=== PATIENT | male | born 1995 | race Two or more races ===

== ENCOUNTER 2016-09-15 18:11 | Inpatient (IN) | payer BC ==
[2016-09-15] MEDS ORDERED: NS 0.9% 1000 ML* 2,000 ML IV ONE (18:54)
[2016-09-15 19:20] LABS: Hematocrit 47 % (42-52); Hemoglobin 15.9 g/dl (14.0-18.0); Mean Corpuscular HGB Conc 34 g/dl (31-36); Mean Corpuscular Hemoglobin 30 pg (27-31); Mean Corpuscular Volume 90 fL (80-94); Mean Platelet Volume 9 um3 (7.4-10.4); Red Blood Count 5.26 10^6/ul (4.0-5.4); Red Cell Distribution Width 13 % (10.5-15); White Blood Count 10.1 10^3/ul (3.5-10.8)
[2016-09-15 19:30] LABS: Urine Bacteria 1+ (Absent); Urine Bilirubin Negative (Negative); Urine Glucose Negative (Negative); Urine Nitrite Negative (Negative)
[2016-09-15 19:32] LABS: Albumin 4.7 g/dL (3.2-5.2); Alkaline Phosphatase 63 U/L (34-104); Anion Gap 2 mmol/L (2-11); BUN/Creatinine Ratio 12.2 (8-20); Blood Urea Nitrogen 10 mg/dL (6-24); C Reactive Protein 3.96 mg/L (< 5.00); CO2 Carbon Dioxide 33 mmol/L (22-32); Calcium 9.7 mg/dL (8.6-10.3); Chloride 103 mmol/L (101-111); EGFR African American 152.5 (>60); EGFR Non-African American 118.6 (>60); Globulin 2.5 g/dL (2-4); Glucose 94 mg/dL (70-100); Potassium 3.9 mmol/L (3.5-5.0); Sodium 138 mmol/L (133-145); Total Protein 7.2 g/dL (6.4-8.9)
[2016-09-15 19:52] LABS: AST 2435 U/L (13-39)
[2016-09-15 19:53] LABS: ALT 549 U/L (7-52)
[2016-09-15 20:34] LABS: Creatine Kinase 165460 U/L (10-223)
[2016-09-15 20:50] LABS: Amylase 64 U/L (29-103); Lipase 37 U/L (11.0-82.0)
[2016-09-15] MEDS ORDERED: traMADol TAB* 50 MG PO PRN (20:58)
[2016-09-15] MEDS ORDERED: CMCS: Melatonin (NF) 3 MG TAB PO PRN (20:58)
[2016-09-15] MEDS ORDERED: Ondansetron INJ* 2 MG/ML VIAL IV PRN (20:58)
--- NOTE | 2016-09-15 21:04 | HP ---
H&P (Free Text) History and Physical: PCP: Katia Date/Time of Evaluation: 09/15/2016 2100 CC: myalgia, dark urine HPI: Mr Kinney is a 21YO male [employer] student who started a weight routine with generalized, but mainly BLE soreness. Between and today, Saturday, he has done ~12hours of dance practice with gradual worsening of his BLE myalgia and brownish discoloration of the urine. He decided to present to ED after reviewing the potential causes on Google. He denies any alcohol, acetaminophen, or supplement use. Specifically he denies using steroids. He denies chest pain, SOB, F/C, N/V/D, or other issues. Work up reveals a total CK of 165k with significant AST/ALT elevation of ~2500/ 550. An US RUQ reveals mild prominence of the CBD with a R kidney appearing involved in a medical-renal process. Case was discussed with MD DORON Nuñez who relates the AST & ALT elevations are likely 2nd to rhabdomyolysis, recommended hepatitis serology, evaluation for Tono's disease and auto-immune hepatitis for completeness, & will evaluate in the AM. I was able to locate a research article (https://www.researchgate.net/ publication/43227742_Liver_Aminotransferases_Are_Elevated_with_Rhabdomyolysis_in _the_Absence_of_Significant_Liver_Injury) stating AST elevations were seen in ~ 93% and ALT elevations were seen in ~75% of patients presenting with rhabdomyolysis (defined as total CK =>1000). Additionally, the AST but NOT the ALT is expected to fall in parallel with the total CK during the 1st 6 days. PMedHx negative except shoulder dislocations Allergies No Known Allergies Allergy (Verified 09/15/16 18:25) Ambulatory Orders NK [No Home Medications Reported] 09/15/16 PSurgHx negative SocHx: no tobacco, alcohol, or recreational drug HX; has been Vegan for ~4- 5years; single, no children; [employer] student; full code status FamHx: reviewed, non-contributory ROS: as above, otherwise reviewed and all were negative Constitutional: NAD, normally developed, well-nourished black male vitals: Vital Signs Temp 37.4 C 01/21/17 18:23 Pulse 85 09/15/16 21:30 Resp 18 09/15/16 18:23 BP 118/60 09/15/16 21:30 Pulse Ox 100 09/15/16 21:30 Intake & Output 09/14/16 09/15/16 09/15/16 23:59 11:59 23:59 Intake Total 1000 Balance 1000 Weight 153 lb Intake: IV Fluids 1000 HEENM: atraumatic; sclera/conjunctiva: non-icteric/clear; hearing: intact; oropharynx: clear, mucosa moist Neck: soft tissue: non-tender; thyroid: normal Pulmonary: clear to auscultation bilaterally, good aeration, no accessory muscle use CV: RR/RR, normal S1S2, no carotid bruit, no jugular venous distention, 2+ B DP/ PT, no edema Abdominal: soft, non-distended, non-tender, no rebound/guarding/rigidity, normoactive bowel sounds, no hepatosplenomegaly or masses, no costovertebral angle tenderness Musculoskeletal: general: no gross abnormality, generalized muscular tenderness of BLE, fit appearance without abnormal muscularity; gait: stable Integumental: normal appearance and texture Psychiatric orientation: AA&O to PPTS affect: calm mood: cooperative eye contact: good content: reliable responses: timely insight: excellent Testing: Lab Results 09/15/16 09/15/16 09/15/16 Range/Units 18:35 18:35 18:35 WBC 10.1 (3.5-10.8) 10^3/ul RBC 5.26 (4.0-5.4) 10^6/ul Hgb 15.9 (14.0-18.0) g/dl Hct 47 (42-52) % MCV 90 (80-94) fL MCH 30 (27-31) pg MCHC 34 (31-36) g/dl RDW 13 (10.5-15) % Plt Count 229 (150-450) 10^3/ul MPV 9 (7.4-10.4) um3 Neut % (Auto) 73.9 (38-83) % Lymph % (Auto) 20.4 L (25-47) % [place] % (Auto) 5.1 (1-9) % Eos % (Auto) 0.4 (0-6) % Baso % (Auto) 0.2 (0-2) % Absolute Neuts (auto) 7.4 (1.5-7.7) 10^3/ul Absolute Lymphs (auto) 2.0 (1.0-4.8) 10^3/ul Absolute Monos (auto) 0.5 (0-0.8) 10^3/ul Absolute Eos (auto) 0 (0-0.6) 10^3/ul Absolute Basos (auto) 0 (0-0.2) 10^3/ul Absolute Nucleated RBC 0 10^3/ul Nucleated RBC % 0 INR (Anticoag Therapy) 1.00 (0.89-1.11) APTT 29.9 (26.0-36.3) seconds Sodium 138 (133-145) mmol/L Potassium 3.9 (3.5-5.0) mmol/L Chloride 103 (101-111) mmol/L Carbon Dioxide 33 H (22-32) mmol/L Anion Gap 2 (2-11) mmol/L BUN 10 (6-24) mg/dL Creatinine 0.82 (0.67-1.17) mg/dL Est GFR ( Amer) 152.5 (>60) Est GFR (Non-Af Amer) 118.6 (>60) BUN/Creatinine Ratio 12.2 (8-20) Glucose 94 (70-100) mg/dL Calcium 9.7 (8.6-10.3) mg/dL Total Bilirubin 0.90 (0.2-1.0) mg/dL AST 2435 H (13-39) U/L ALT 549 H (7-52) U/L Alkaline Phosphatase 63 (34-104) U/L Total Creatine Kinase 422793 H (10-223) U/L CK-MB (CK-2) 68.6 H (0.6-6.3) ng/mL C-Reactive Protein 3.96 (< 5.00) mg/L Total Protein 7.2 (6.4-8.9) g/dL Albumin 4.7 (3.2-5.2) g/dL Globulin 2.5 (2-4) g/dL Albumin/Globulin Ratio 1.9 (1-3) Amylase 64 (29-103) U/L Lipase 37 (11.0-82.0) U/L Urine Color Urine Appearance Urine pH (5-9) Ur Specific [place] (1.010-1.030) Urine Protein (Negative) Urine Ketones (Negative) Urine Blood (Negative) Urine Nitrate (Negative) Urine Bilirubin (Negative) Urine Urobilinogen (Negative) Ur Leukocyte Esterase (Negative) Urine WBC (Auto) (Absent) Urine RBC (Auto) (Absent) Urine Bacteria (Absent) Urine Glucose (Negative) Acetaminophen Pending 09/15/16 Range/Units 19:20 WBC (3.5-10.8) 10^3/ul RBC (4.0-5.4) 10^6/ul Hgb (14.0-18.0) g/dl Hct (42-52) % MCV (80-94) fL MCH (27-31) pg MCHC (31-36) g/dl RDW (10.5-15) % Plt Count (150-450) 10^3/ul MPV (7.4-10.4) um3 Neut % (Auto) (38-83) % Lymph % (Auto) (25-47) % [place] % (Auto) (1-9) % Eos % (Auto) (0-6) % Baso % (Auto) (0-2) % Absolute Neuts (auto) (1.5-7.7) 10^3/ul Absolute Lymphs (auto) (1.0-4.8) 10^3/ul Absolute Monos (auto) (0-0.8) 10^3/ul Absolute Eos (auto) (0-0.6) 10^3/ul Absolute Basos (auto) (0-0.2) 10^3/ul Absolute Nucleated RBC 10^3/ul Nucleated RBC % INR (Anticoag Therapy) (0.89-1.11) APTT (26.0-36.3) seconds Sodium (133-145) mmol/L Potassium (3.5-5.0) mmol/L Chloride (101-111) mmol/L Carbon Dioxide (22-32) mmol/L Anion Gap (2-11) mmol/L BUN (6-24) mg/dL Creatinine (0.67-1.17) mg/dL Est GFR ( Amer) (>60) Est GFR (Non-Af Amer) (>60) BUN/Creatinine Ratio (8-20) Glucose (70-100) mg/dL Calcium (8.6-10.3) mg/dL Total Bilirubin (0.2-1.0) mg/dL AST (13-39) U/L ALT (7-52) U/L Alkaline Phosphatase (34-104) U/L Total Creatine Kinase (10-223) U/L CK-MB (CK-2) (0.6-6.3) ng/mL C-Reactive Protein (< 5.00) mg/L Total Protein (6.4-8.9) g/dL Albumin (3.2-5.2) g/dL Globulin (2-4) g/dL Albumin/Globulin Ratio (1-3) Amylase (29-103) U/L Lipase (11.0-82.0) U/L Urine Color Straw Urine Appearance Clear Urine pH 7.0 (5-9) Ur Specific [place] 1.002 L (1.010-1.030) Urine Protein Negative (Negative) Urine Ketones Negative (Negative) Urine Blood 3+ H (Negative) Urine Nitrate Negative (Negative) Urine Bilirubin Negative (Negative) Urine Urobilinogen Negative (Negative) Ur Leukocyte Esterase Negative (Negative) Urine WBC (Auto) Absent (Absent) Urine RBC (Auto) 1+(3-5/hpf) H (Absent) Urine Bacteria 1+ H (Absent) Urine Glucose Negative (Negative) Acetaminophen US RUQ: IMPRESSION: 1. MILD PROMINENCE OF THE COMMON BILE DUCT. 2. THE RIGHT KIDNEY IS INCREASED IN ECHOGENICITY CONSISTENT WITH MEDICAL RENAL DISEASE. Impression: 21M presenting with severe exercise-induced rhabdomyolysis DIAGNOSIS & PLAN Primary exercise-induced rhabdomyolysis : aggressive IVF hydration considering US appearance of R kidney : trend total CK & AST/ALT : check JOANIE & anti-dsDNA : check ceruloplasmin : check acute hepatitis panel : pain control : supportive care : Aurelio Dutta MD GI was consulted & will follow in the AM; input appreciated Admission Rational: observation for rhabdomyolysis DVTp: YASSINE Code Status: full
--- NOTE | 2016-09-15 21:12 | RAD ---
INDICATION: Elevated liver function tests. COMPARISON: There are no prior studies available for comparison. TECHNIQUE: Multiple real-time images of the right upper quadrant were obtained. FINDINGS: The gallbladder appears slightly contracted and otherwise unremarkable. No gallbladder wall thickening or pericholecystic fluid is seen. No intrahepatic ductal distention is seen. There is mild prominence of the common bile duct. The common bile duct measured 0.6 cm in diameter. The liver is normal in size without significant focal abnormality. The pancreas is partially obscured by overlying bowel gas. The right kidney is normal in size and increased in echogenicity suggestive of medical renal disease. IMPRESSION: 1. MILD PROMINENCE OF THE COMMON BILE DUCT. 2. THE RIGHT KIDNEY IS INCREASED IN ECHOGENICITY CONSISTENT WITH MEDICAL RENAL DISEASE.
--- NOTE | 2016-09-15 21:47 | ED ---
Gwyn Mccullough Janilya, scribed for Zia Atkins MD on 09/15/16 at 1858 . Lower Extremity - HPI Summary HPI Summary: A 21 y/o male came in to [facility] presenting w/ bilateral leg pain starting 2 days ago. Pt reports feeling pain, soreness, tightness, and swelling in the quads, hamstrings, and glutes. He states he cannot bend his legs. He denies any changes in his feet. In addition, pt states the color of his urine is noticeably darker. Pt denies dysuria. Pt is not on a sports team, but does exercise on his own. Pt does not take supplements. - History of Current Complaint Chief Complaint: EDGeneral Stated Complaint: WEAKNESS, DARK URINE Time Seen by Provider: 09/15/16 18:47 Hx Obtained From: Patient Onset of Pain: Days Severity Initially: Moderate Severity Currently: Moderate Pain Intensity: 8 Pain Scale Used: 0-10 Numeric Timing: Constant, Lasting Days Character Of Pain: Aching, Stiffness Associated Signs And Symptoms: Positive: Swelling - Allergies/Home Medications Allergies/Adverse Reactions: Allergies Allergy/AdvReac Type Severity Reaction Status Date / Time No Known Allergies Allergy Verified 09/15/16 18:25 PMH/Surg Hx/FS Hx/Imm Hx Infectious Disease History: No Infectious Disease History: Denies: Traveled Outside the [place] in Last 30 Days - Family History Known Family History: Positive: Diabetes - grandmother - Social History Occupation: Student Alcohol Use: Occasionally Substance Use Type: Reports: None Smoking Status (MU): Never Smoked Tobacco Review of Systems Positive: other - darker urine. Negative: dysuria Positive: Arthralgia - bilateral leg pain, Myalgia - bilateral leg pain All Other Systems Reviewed And Are Negative: Yes Physical Exam Triage Information Reviewed: Yes Vital Signs On Initial Exam: Initial Vitals Temp Pulse Resp BP Pulse Ox 99.3 F 68 18 140/76 100 09/15/16 18:23 09/15/16 18:23 09/15/16 18:23 09/15/16 18:23 09/15/16 18:23 Vital Signs Reviewed: Yes Appearance: Positive: Well-Appearing, No Pain Distress Skin: Positive: Warm, Skin Color Reflects Adequate Perfusion, Dry Head/Face: Positive: Normal Head/Face Inspection Eyes: Positive: EOMI, DELON ENT: Positive: Normal ENT inspection Neck: Positive: Supple, Nontender Respiratory/Lung Sounds: Positive: Clear to Auscultation, Breath Sounds Present Cardiovascular: Positive: RRR Abdomen Description: Positive: Nontender, Soft Bowel Sounds: Positive: Present Musculoskeletal: Positive: Normal, Strength/ROM Intact Neurological: Positive: Normal, Sensory/Motor Intact, Alert, Oriented to Person Place, Time Psychiatric: Positive: Affect/Mood Appropriate Diagnostics - Vital Signs Vital Signs Temp Pulse Resp BP Pulse Ox 09/15/16 18:23 99.3 F 68 18 140/76 100 - Laboratory Lab Results: Lab Results 09/15/16 09/15/16 09/15/16 Range/Units 18:35 18:35 18:35 WBC 10.1 (3.5-10.8) 10^3/ul RBC 5.26 (4.0-5.4) 10^6/ul Hgb 15.9 (14.0-18.0) g/dl Hct 47 (42-52) % MCV 90 (80-94) fL MCH 30 (27-31) pg MCHC 34 (31-36) g/dl RDW 13 (10.5-15) % Plt Count 229 (150-450) 10^3/ul MPV 9 (7.4-10.4) um3 Neut % (Auto) 73.9 (38-83) % Lymph % (Auto) 20.4 L (25-47) % [place] % (Auto) 5.1 (1-9) % Eos % (Auto) 0.4 (0-6) % Baso % (Auto) 0.2 (0-2) % Absolute Neuts (auto) 7.4 (1.5-7.7) 10^3/ul Absolute Lymphs (auto) 2.0 (1.0-4.8) 10^3/ul Absolute Monos (auto) 0.5 (0-0.8) 10^3/ul Absolute Eos (auto) 0 (0-0.6) 10^3/ul Absolute Basos (auto) 0 (0-0.2) 10^3/ul Absolute Nucleated RBC 0 10^3/ul Nucleated RBC % 0 INR (Anticoag Therapy) 1.00 (0.89-1.11) APTT 29.9 (26.0-36.3) seconds Sodium 138 (133-145) mmol/L Potassium 3.9 (3.5-5.0) mmol/L Chloride 103 (101-111) mmol/L Carbon Dioxide 33 H (22-32) mmol/L Anion Gap 2 (2-11) mmol/L BUN 10 (6-24) mg/dL Creatinine 0.82 (0.67-1.17) mg/dL Est GFR ( Amer) 152.5 (>60) Est GFR (Non-Af Amer) 118.6 (>60) BUN/Creatinine Ratio 12.2 (8-20) Glucose 94 (70-100) mg/dL Calcium 9.7 (8.6-10.3) mg/dL Total Bilirubin 0.90 (0.2-1.0) mg/dL AST 2435 H (13-39) U/L ALT 549 H (7-52) U/L Alkaline Phosphatase 63 (34-104) U/L Total Creatine Kinase 142021 H (10-223) U/L CK-MB (CK-2) 68.6 H (0.6-6.3) ng/mL C-Reactive Protein 3.96 (< 5.00) mg/L Total Protein 7.2 (6.4-8.9) g/dL Albumin 4.7 (3.2-5.2) g/dL Globulin 2.5 (2-4) g/dL Albumin/Globulin Ratio 1.9 (1-3) Amylase 64 (29-103) U/L Lipase 37 (11.0-82.0) U/L Urine Color Urine Appearance Urine pH (5-9) Ur Specific [place] (1.010-1.030) Urine Protein (Negative) Urine Ketones (Negative) Urine Blood (Negative) Urine Nitrate (Negative) Urine Bilirubin (Negative) Urine Urobilinogen (Negative) Ur Leukocyte Esterase (Negative) Urine WBC (Auto) (Absent) Urine RBC (Auto) (Absent) Urine Bacteria (Absent) Urine Glucose (Negative) Acetaminophen Pending 09/15/16 Range/Units 19:20 WBC (3.5-10.8) 10^3/ul RBC (4.0-5.4) 10^6/ul Hgb (14.0-18.0) g/dl Hct (42-52) % MCV (80-94) fL MCH (27-31) pg MCHC (31-36) g/dl RDW (10.5-15) % Plt Count (150-450) 10^3/ul MPV (7.4-10.4) um3 Neut % (Auto) (38-83) % Lymph % (Auto) (25-47) % [place] % (Auto) (1-9) % Eos % (Auto) (0-6) % Baso % (Auto) (0-2) % Absolute Neuts (auto) (1.5-7.7) 10^3/ul Absolute Lymphs (auto) (1.0-4.8) 10^3/ul Absolute Monos (auto) (0-0.8) 10^3/ul Absolute Eos (auto) (0-0.6) 10^3/ul Absolute Basos (auto) (0-0.2) 10^3/ul Absolute Nucleated RBC 10^3/ul Nucleated RBC % INR (Anticoag Therapy) (0.89-1.11) APTT (26.0-36.3) seconds Sodium (133-145) mmol/L Potassium (3.5-5.0) mmol/L Chloride (101-111) mmol/L Carbon Dioxide (22-32) mmol/L Anion Gap (2-11) mmol/L BUN (6-24) mg/dL Creatinine (0.67-1.17) mg/dL Est GFR ( Amer) (>60) Est GFR (Non-Af Amer) (>60) BUN/Creatinine Ratio (8-20) Glucose (70-100) mg/dL Calcium (8.6-10.3) mg/dL Total Bilirubin (0.2-1.0) mg/dL AST (13-39) U/L ALT (7-52) U/L Alkaline Phosphatase (34-104) U/L Total Creatine Kinase (10-223) U/L CK-MB (CK-2) (0.6-6.3) ng/mL C-Reactive Protein (< 5.00) mg/L Total Protein (6.4-8.9) g/dL Albumin (3.2-5.2) g/dL Globulin (2-4) g/dL Albumin/Globulin Ratio (1-3) Amylase (29-103) U/L Lipase (11.0-82.0) U/L Urine Color Straw Urine Appearance Clear Urine pH 7.0 (5-9) Ur Specific [place] 1.002 L (1.010-1.030) Urine Protein Negative (Negative) Urine Ketones Negative (Negative) Urine Blood 3+ H (Negative) Urine Nitrate Negative (Negative) Urine Bilirubin Negative (Negative) Urine Urobilinogen Negative (Negative) Ur Leukocyte Esterase Negative (Negative) Urine WBC (Auto) Absent (Absent) Urine RBC (Auto) 1+(3-5/hpf) H (Absent) Urine Bacteria 1+ H (Absent) Urine Glucose Negative (Negative) Acetaminophen Result Diagrams: 09/15/16 18:35 09/15/16 18:35 Lab Statement: Any lab studies that have been ordered have been reviewed, and results considered in the medical decision making process. - Ultrasound No standard instances Ultrasound Interpretation: Positive (See Comments) - IMPRESSION: 1. MILD PROMINENCE OF THE COMMON BILE DUCT. 2. THE RIGHT KIDNEY IS INCREASED IN ECHOGENICITY CONSISTENT WITH MEDICAL RENAL DISEASE. Ultrasound Interpretation Completed By: Radiologist Lower Extremity Course/Dx - Course Assessment/Plan: DISCUSSED RESULTS WITH PATIENT. ADMIT HOSPITALIST STABLE. - Diagnoses Provider Diagnoses: Rhabdomyolysis, Elevated LFTs Discharge - Discharge Plan Condition: Stable Disposition: ADMITTED TO [facility] The documentation as recorded by the Gwyn gonzalez Janilya accurately reflects the service I personally performed and the decisions made by me, Zia Atkins MD.
[2016-09-15 22:07] LABS: Acetaminophen < 15 mcg/mL
[2016-09-16] MEDS: NS 0.9% 1000 ML* 1,000 ML IV SCH ×2 (00:47→02:18)
[2016-09-16] MEDS: Omeprazole CAP* 20 MG PO SCH (06:20)
[2016-09-16 06:53] LABS: Albumin 3.5 g/dL (3.2-5.2); Calcium 8.7 mg/dL (8.6-10.3); Direct Bilirubin 0.2 mg/dL (0.03-0.18); EGFR African American 183.1 (>60); EGFR Non-African American 142.4 (>60); Indirect Bilirubin 0.9 mg/dL (0.3-1.0); Potassium 3.8 mmol/L (3.5-5.0); Total Bilirubin 1.1 mg/dL (0.2-1.0); Total Protein 5.5 g/dL (6.4-8.9)
--- NOTE | 2016-09-16 09:23 | PN ---
Subjective Date of Service: 09/16/16 Interval History: Patient seen and examined at bedside. He is sitting up and using his laptop. He denies CP, SOB, abd pain, n/v. He endorses leg tenderness in his thighs, quads, and hamstrings. He denies calf pain. 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 [employer] Family History: Unchanged from Admission Social History: Unchanged from Admission Past Medical History: Unchanged from Admission Objective Active Medications: Lactated Ringer's (Lactated Ringers 1000 Ml Bag*) 1,000 mls @ 200 mls/hr IV PER RATE [facility] Last Admin: 09/16/16 03:51 Dose: 200 mls/hr Sodium Chloride (Ns 0.9% 1000 Ml*) 1,000 mls @ 0 mls/hr IV WIDE OPEN ZENA PRN Reason: Wide Open Stop: 09/16/16 21:01 Last Admin: 09/16/16 02:18 Dose: 800 mls/hr Melatonin (Melatonin (Nf)) 3 mg PO BEDTIME PRN; Protocol PRN Reason: Sleep Omeprazole (Prilosec Cap*) 20 mg PO DAILY@0600 [facility] Last Admin: 09/16/16 06:20 Dose: 20 mg Ondansetron HCl (Zofran Inj*) 4 mg IV Q6H PRN PRN Reason: NAUSEA Tramadol HCl (Ultram*) 50 mg PO Q6H PRN PRN Reason: PAIN Vital Signs 09/15/16 09/15/16 09/15/16 21:13 21:30 22:55 Temperature 97.9 F Pulse Rate 73 85 75 Respiratory 16 Rate Blood Pressure 118/60 132/79 (mmHg) O2 Sat by Pulse 100 100 100 Oximetry 09/15/16 09/16/16 09/16/16 23:01 01:22 03:11 Temperature 97.9 F 97.7 F Pulse Rate 75 70 Respiratory 16 16 16 Rate Blood Pressure 132/79 121/65 (mmHg) O2 Sat by Pulse 97 Oximetry 09/16/16 04:10 Temperature 98.2 F Pulse Rate 71 Respiratory 16 Rate Blood Pressure 113/51 (mmHg) O2 Sat by Pulse 98 Oximetry Oxygen Devices in Use Now: None Appearance: Young male, sitting up, in NAD Eyes: PERRLA Ears/Nose/Mouth/Throat: Clear Oropharnyx, Mucous Membranes Moist Neck: NL Appearance and Movements; NL JVP Respiratory: Symmetrical Chest Expansion and Respiratory Effort, Clear to Auscultation Cardiovascular: NL Sounds; No Murmurs; No JVD, RRR Abdominal: NL Sounds; No Tenderness; No Distention Extremities: No Edema Skin: No Rash or Ulcers Neurological: Alert and Oriented x 3 Lines/Tubes/Other Access: Clean, Dry and Intact Peripheral IV Nutrition: Taking PO's Result Diagrams: 09/15/16 18:35 09/16/16 06:02 Additional Lab and Data: Lab Results 09/15/16 09/15/16 09/15/16 Range/Units 18:35 18:35 18:35 WBC 10.1 (3.5-10.8) 10^3/ul RBC 5.26 (4.0-5.4) 10^6/ul Hgb 15.9 (14.0-18.0) g/dl Hct 47 (42-52) % MCV 90 (80-94) fL MCH 30 (27-31) pg MCHC 34 (31-36) g/dl RDW 13 (10.5-15) % Plt Count 229 (150-450) 10^3/ul MPV 9 (7.4-10.4) um3 Neut % (Auto) 73.9 (38-83) % Lymph % (Auto) 20.4 L (25-47) % [place] % (Auto) 5.1 (1-9) % Eos % (Auto) 0.4 (0-6) % Baso % (Auto) 0.2 (0-2) % Absolute Neuts (auto) 7.4 (1.5-7.7) 10^3/ul Absolute Lymphs (auto) 2.0 (1.0-4.8) 10^3/ul Absolute Monos (auto) 0.5 (0-0.8) 10^3/ul Absolute Eos (auto) 0 (0-0.6) 10^3/ul Absolute Basos (auto) 0 (0-0.2) 10^3/ul Absolute Nucleated RBC 0 10^3/ul Nucleated RBC % 0 INR (Anticoag Therapy) 1.00 (0.89-1.11) APTT 29.9 (26.0-36.3) seconds Sodium 138 (133-145) mmol/L Potassium 3.9 (3.5-5.0) mmol/L Chloride 103 (101-111) mmol/L Carbon Dioxide 33 H (22-32) mmol/L Anion Gap 2 (2-11) mmol/L BUN 10 (6-24) mg/dL Creatinine 0.82 (0.67-1.17) mg/dL Est GFR ( Amer) 152.5 (>60) Est GFR (Non-Af Amer) 118.6 (>60) BUN/Creatinine Ratio 12.2 (8-20) Glucose 94 (70-100) mg/dL Calcium 9.7 (8.6-10.3) mg/dL Total Bilirubin 0.90 (0.2-1.0) mg/dL AST 2435 H (13-39) U/L ALT 549 H (7-52) U/L Alkaline Phosphatase 63 (34-104) U/L Total Creatine Kinase 933995 H (10-223) U/L CK-MB (CK-2) 68.6 H (0.6-6.3) ng/mL C-Reactive Protein 3.96 (< 5.00) mg/L Total Protein 7.2 (6.4-8.9) g/dL Albumin 4.7 (3.2-5.2) g/dL Globulin 2.5 (2-4) g/dL Albumin/Globulin Ratio 1.9 (1-3) Amylase 64 (29-103) U/L Lipase 37 (11.0-82.0) U/L Urine Color Urine Appearance Urine pH (5-9) Ur Specific [place] (1.010-1.030) Urine Protein (Negative) Urine Ketones (Negative) Urine Blood (Negative) Urine Nitrate (Negative) Urine Bilirubin (Negative) Urine Urobilinogen (Negative) Ur Leukocyte Esterase (Negative) Urine WBC (Auto) (Absent) Urine RBC (Auto) (Absent) Urine Bacteria (Absent) Urine Glucose (Negative) Acetaminophen Pending 09/15/16 Range/Units 19:20 WBC (3.5-10.8) 10^3/ul RBC (4.0-5.4) 10^6/ul Hgb (14.0-18.0) g/dl Hct (42-52) % MCV (80-94) fL MCH (27-31) pg MCHC (31-36) g/dl RDW (10.5-15) % Plt Count (150-450) 10^3/ul MPV (7.4-10.4) um3 Neut % (Auto) (38-83) % Lymph % (Auto) (25-47) % [place] % (Auto) (1-9) % Eos % (Auto) (0-6) % Baso % (Auto) (0-2) % Absolute Neuts (auto) (1.5-7.7) 10^3/ul Absolute Lymphs (auto) (1.0-4.8) 10^3/ul Absolute Monos (auto) (0-0.8) 10^3/ul Absolute Eos (auto) (0-0.6) 10^3/ul Absolute Basos (auto) (0-0.2) 10^3/ul Absolute Nucleated RBC 10^3/ul Nucleated RBC % INR (Anticoag Therapy) (0.89-1.11) APTT (26.0-36.3) seconds Sodium (133-145) mmol/L Potassium (3.5-5.0) mmol/L Chloride (101-111) mmol/L Carbon Dioxide (22-32) mmol/L Anion Gap (2-11) mmol/L BUN (6-24) mg/dL Creatinine (0.67-1.17) mg/dL Est GFR ( Amer) (>60) Est GFR (Non-Af Amer) (>60) BUN/Creatinine Ratio (8-20) Glucose (70-100) mg/dL Calcium (8.6-10.3) mg/dL Total Bilirubin (0.2-1.0) mg/dL AST (13-39) U/L ALT (7-52) U/L Alkaline Phosphatase (34-104) U/L Total Creatine Kinase (10-223) U/L CK-MB (CK-2) (0.6-6.3) ng/mL C-Reactive Protein (< 5.00) mg/L Total Protein (6.4-8.9) g/dL Albumin (3.2-5.2) g/dL Globulin (2-4) g/dL Albumin/Globulin Ratio (1-3) Amylase (29-103) U/L Lipase (11.0-82.0) U/L Urine Color Straw Urine Appearance Clear Urine pH 7.0 (5-9) Ur Specific [place] 1.002 L (1.010-1.030) Urine Protein Negative (Negative) Urine Ketones Negative (Negative) Urine Blood 3+ H (Negative) Urine Nitrate Negative (Negative) Urine Bilirubin Negative (Negative) Urine Urobilinogen Negative (Negative) Ur Leukocyte Esterase Negative (Negative) Urine WBC (Auto) Absent (Absent) Urine RBC (Auto) 1+(3-5/hpf) H (Absent) Urine Bacteria 1+ H (Absent) Urine Glucose Negative (Negative) Acetaminophen Microbiology and Other Data: Microbiology 09/15/16 22:00 Nasal Screen MRSA (PCR)(SHAWN) - Final Nasal Mrsa Negative Assess/Plan/Problems-Billing Assessment: Mr. Kinney is a 21 yo male patient with no significant past medical history who presented to the ED on 09/15/16 with BLE muscle pain and dark urine that is secondary to exercise induced rhabdomyolysis. - Patient Problems (1) Rhabdomyolysis Code(s): M62.82 - RHABDOMYOLYSIS Comment: Exercise induced - patient reports new weight regimen in addition to several hours of dance practice Continue aggressive IVF hydration Monitor renal function Continue to trend total CK and AST/ALT Continue pain management and supportive care (2) Elevated LFTs Code(s): R94.5 - ABNORMAL RESULTS OF LIVER FUNCTION STUDIES Comment: Continue to trend AST/ALT Suspect rise in AST/ALT secondary to rhabdomyolysis Appreciate GI consult Hepatitis serology pending JOANIE, anti-dsDNA, ceruloplasmin pending Continue supportive care and pain control. (3) DVT prophylaxis Comment: YASSINE paz Status and Disposition: OBV to inpatient. Anticipate LOS >2 days.
--- NOTE | 2016-09-16 12:14 | CONS ---
CONSULTATION REPORT: DATE OF CONSULT: 09/16/16 REASON FOR CONSULT: Abnormal liver function tests. NARRATIVE: Mr. 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 He presented to the emergency room where he was found to have markedly abnormal blood test, in particular a total CPK of 165,460 associated with an AST of 2435 and an ALT of 549. Total bilirubin was 0.9. Urinalysis was obtained as well, which showed 1 + red blood cells, esterase negative. He was diagnosed with rhabdomyolysis and was admitted. Hydration was continued and he is feeling better today. His muscle aches have improved and he thinks his urine color has improved. A repeat laboratory test today include a total CPK of 121,534, ALT of 400, AST of 1606, and a total bilirubin of 1.1. The patient also had liver imaging, which showed a normal liver and bile duct. He denies any history of liver disease, jaundice, and has never been told of abnormal liver tests before. Again, the patient's symptoms developed after heavy exercise, he describes dancing strenuously for 3 hours repetitively with small breaks through the last 3 or 4 days as he is training to be in a dance contest. He also lifted weights. He believes he was staying well hydrated. He denies any medicines or supplements that he takes. PAST MEDICAL HISTORY: Includes shoulder dislocation, but no other issues. MEDICATIONS: He takes no medicines or supplements at home. FAMILY HISTORY: He has no family history of liver disease. REVIEW OF SYSTEMS: He denies any abdominal pain, nausea, vomiting, or GI bleeding. His appetite has been good. PHYSICAL EXAM: He is a pleasant, well-appearing, gentleman in no acute distress. Temperature is 97.7, blood pressure is 118/69, heart rate is 65 and regular. He is anicteric and there are no telangiectasias. Lungs are clear. Cardiac exam reveals regular rhythm and rate without murmur. Abdomen is soft. There is no tenderness or hepatomegaly. There is no shifting dullness. Bowel sounds normoactive. LABORATORY DATA: Additional data includes a creatinine of 0.7. INR of 1. Platelet count of 229,000. IMPRESSION: Young, healthy gentleman presenting with evidence of rhabdomyolysis associated with elevated ALT and AST. It is certain that these enzymatic elevations are all related to muscle injury and not hepatic disease. The AST greater than ALT is certainly consistent with that and the remainder of his liver panel is normal. I will recheck his liver test along with a GGTP. With hydration, this should resolve. Viral serologies were checked and I will follow up on them, but again I do not believe this represents a hepatic process. This was discussed with the patient. [id number]/[facility] #: [id number] [facility]
[2016-09-17] MEDS: Omeprazole CAP* 20 MG PO SCH (06:17)
[2016-09-17 06:50] LABS: Albumin 3.7 g/dL (3.2-5.2); BUN/Creatinine Ratio 7.5 (8-20); Calcium 9.1 mg/dL (8.6-10.3); Direct Bilirubin 0.2 mg/dL (0.03-0.18); EGFR African American 156.9 (>60); Globulin 2.4 g/dL (2-4); Indirect Bilirubin 0.6 mg/dL (0.3-1.0); Potassium 3.9 mmol/L (3.5-5.0); Total Bilirubin 0.8 mg/dL (0.2-1.0); Total Protein 6.1 g/dL (6.4-8.9)
--- NOTE | 2016-09-17 11:01 | PN ---
Subjective Date of Service: 09/17/16 Interval History: Patient seen and examined at bedside. He denies specific complaint, including fever/chills, chest pain, SOB, abd pain, n/v, dysuria, flank pain, increased leg pain. He reports that his leg swelling has improved. He would like to go home; we did discuss his CK levels and the need for him to stay for potentially 3-5 more days for fluid resuscitation in order to prevent kidney and liver damage. He is concerned because classes start Saturday. We discussed alternative plans in the likely event that he needs to miss class. Family History: Unchanged from Admission Social History: Unchanged from Admission Past Medical History: Unchanged from Admission Objective Active Medications: Sodium Chloride (Ns 0.9% 1000 Ml*) 2,000 mls @ 1,000 mls/hr IV .PER RATE ONE Stop: 09/17/16 12:22 Lactated Ringer's (Lactated Ringers 1000 Ml Bag*) 1,000 mls @ 200 mls/hr IV PER RATE [facility] Melatonin (Melatonin (Nf)) 3 mg PO BEDTIME PRN; Protocol PRN Reason: Sleep Omeprazole (Prilosec Cap*) 20 mg PO DAILY@0600 [facility] Last Admin: 09/17/16 06:17 Dose: 20 mg Ondansetron HCl (Zofran Inj*) 4 mg IV Q6H PRN PRN Reason: NAUSEA Tramadol HCl (Ultram*) 50 mg PO Q6H PRN PRN Reason: PAIN Vital Signs 09/16/16 09/16/16 09/16/16 11:04 15:12 19:15 Temperature 98.5 F 97.6 F 98.1 F Pulse Rate 58 69 68 Respiratory 16 16 16 Rate Blood Pressure 137/65 128/83 131/73 (mmHg) O2 Sat by Pulse 100 100 100 Oximetry 09/16/16 09/16/16 09/17/16 21:23 23:09 07:13 Temperature 98.9 F 97.9 F Pulse Rate 62 71 Respiratory 16 16 15 Rate Blood Pressure 125/76 121/69 (mmHg) O2 Sat by Pulse 99 100 Oximetry 09/17/16 08:00 Temperature Pulse Rate Respiratory 16 Rate Blood Pressure (mmHg) O2 Sat by Pulse Oximetry Oxygen Devices in Use Now: None Appearance: Young male patient, sitting up, in NAD Eyes: PERRLA Ears/Nose/Mouth/Throat: Clear Oropharnyx, Mucous Membranes Moist Neck: NL Appearance and Movements; NL JVP Respiratory: Symmetrical Chest Expansion and Respiratory Effort, Clear to Auscultation Cardiovascular: NL Sounds; No Murmurs; No JVD, RRR Abdominal: NL Sounds; No Tenderness; No Distention Extremities: No Edema Skin: No Rash or Ulcers Neurological: Alert and Oriented x 3 Lines/Tubes/Other Access: Clean, Dry and Intact Peripheral IV Nutrition: Taking PO's Result Diagrams: 09/15/16 18:35 09/17/16 05:41 Additional Lab and Data: Lab Results 09/15/16 09/15/16 09/15/16 Range/Units 18:35 18:35 18:35 WBC 10.1 (3.5-10.8) 10^3/ul RBC 5.26 (4.0-5.4) 10^6/ul Hgb 15.9 (14.0-18.0) g/dl Hct 47 (42-52) % MCV 90 (80-94) fL MCH 30 (27-31) pg MCHC 34 (31-36) g/dl RDW 13 (10.5-15) % Plt Count 229 (150-450) 10^3/ul MPV 9 (7.4-10.4) um3 Neut % (Auto) 73.9 (38-83) % Lymph % (Auto) 20.4 L (25-47) % [place] % (Auto) 5.1 (1-9) % Eos % (Auto) 0.4 (0-6) % Baso % (Auto) 0.2 (0-2) % Absolute Neuts (auto) 7.4 (1.5-7.7) 10^3/ul Absolute Lymphs (auto) 2.0 (1.0-4.8) 10^3/ul Absolute Monos (auto) 0.5 (0-0.8) 10^3/ul Absolute Eos (auto) 0 (0-0.6) 10^3/ul Absolute Basos (auto) 0 (0-0.2) 10^3/ul Absolute Nucleated RBC 0 10^3/ul Nucleated RBC % 0 INR (Anticoag Therapy) 1.00 (0.89-1.11) APTT 29.9 (26.0-36.3) seconds Sodium 138 (133-145) mmol/L Potassium 3.9 (3.5-5.0) mmol/L Chloride 103 (101-111) mmol/L Carbon Dioxide 33 H (22-32) mmol/L Anion Gap 2 (2-11) mmol/L BUN 10 (6-24) mg/dL Creatinine 0.82 (0.67-1.17) mg/dL Est GFR ( Amer) 152.5 (>60) Est GFR (Non-Af Amer) 118.6 (>60) BUN/Creatinine Ratio 12.2 (8-20) Glucose 94 (70-100) mg/dL Calcium 9.7 (8.6-10.3) mg/dL Total Bilirubin 0.90 (0.2-1.0) mg/dL AST 2435 H (13-39) U/L ALT 549 H (7-52) U/L Alkaline Phosphatase 63 (34-104) U/L Total Creatine Kinase 634225 H (10-223) U/L CK-MB (CK-2) 68.6 H (0.6-6.3) ng/mL C-Reactive Protein 3.96 (< 5.00) mg/L Total Protein 7.2 (6.4-8.9) g/dL Albumin 4.7 (3.2-5.2) g/dL Globulin 2.5 (2-4) g/dL Albumin/Globulin Ratio 1.9 (1-3) Amylase 64 (29-103) U/L Lipase 37 (11.0-82.0) U/L Urine Color Urine Appearance Urine pH (5-9) Ur Specific [place] (1.010-1.030) Urine Protein (Negative) Urine Ketones (Negative) Urine Blood (Negative) Urine Nitrate (Negative) Urine Bilirubin (Negative) Urine Urobilinogen (Negative) Ur Leukocyte Esterase (Negative) Urine WBC (Auto) (Absent) Urine RBC (Auto) (Absent) Urine Bacteria (Absent) Urine Glucose (Negative) Acetaminophen Pending 09/15/16 Range/Units 19:20 WBC (3.5-10.8) 10^3/ul RBC (4.0-5.4) 10^6/ul Hgb (14.0-18.0) g/dl Hct (42-52) % MCV (80-94) fL MCH (27-31) pg MCHC (31-36) g/dl RDW (10.5-15) % Plt Count (150-450) 10^3/ul MPV (7.4-10.4) um3 Neut % (Auto) (38-83) % Lymph % (Auto) (25-47) % [place] % (Auto) (1-9) % Eos % (Auto) (0-6) % Baso % (Auto) (0-2) % Absolute Neuts (auto) (1.5-7.7) 10^3/ul Absolute Lymphs (auto) (1.0-4.8) 10^3/ul Absolute Monos (auto) (0-0.8) 10^3/ul Absolute Eos (auto) (0-0.6) 10^3/ul Absolute Basos (auto) (0-0.2) 10^3/ul Absolute Nucleated RBC 10^3/ul Nucleated RBC % INR (Anticoag Therapy) (0.89-1.11) APTT (26.0-36.3) seconds Sodium (133-145) mmol/L Potassium (3.5-5.0) mmol/L Chloride (101-111) mmol/L Carbon Dioxide (22-32) mmol/L Anion Gap (2-11) mmol/L BUN (6-24) mg/dL Creatinine (0.67-1.17) mg/dL Est GFR ( Amer) (>60) Est GFR (Non-Af Amer) (>60) BUN/Creatinine Ratio (8-20) Glucose (70-100) mg/dL Calcium (8.6-10.3) mg/dL Total Bilirubin (0.2-1.0) mg/dL AST (13-39) U/L ALT (7-52) U/L Alkaline Phosphatase (34-104) U/L Total Creatine Kinase (10-223) U/L CK-MB (CK-2) (0.6-6.3) ng/mL C-Reactive Protein (< 5.00) mg/L Total Protein (6.4-8.9) g/dL Albumin (3.2-5.2) g/dL Globulin (2-4) g/dL Albumin/Globulin Ratio (1-3) Amylase (29-103) U/L Lipase (11.0-82.0) U/L Urine Color Straw Urine Appearance Clear Urine pH 7.0 (5-9) Ur Specific [place] 1.002 L (1.010-1.030) Urine Protein Negative (Negative) Urine Ketones Negative (Negative) Urine Blood 3+ H (Negative) Urine Nitrate Negative (Negative) Urine Bilirubin Negative (Negative) Urine Urobilinogen Negative (Negative) Ur Leukocyte Esterase Negative (Negative) Urine WBC (Auto) Absent (Absent) Urine RBC (Auto) 1+(3-5/hpf) H (Absent) Urine Bacteria 1+ H (Absent) Urine Glucose Negative (Negative) Acetaminophen Microbiology and Other Data: Microbiology 09/15/16 22:00 Nasal Screen MRSA (PCR)(SHAWN) - Final Nasal Mrsa Negative Assess/Plan/Problems-Billing Assessment: Mr. Kinney is a 21 yo male patient with no significant past medical history who presented to the ED on 09/15/16 with BLE muscle pain and dark urine that is secondary to exercise induced rhabdomyolysis. - Patient Problems (1) Rhabdomyolysis Code(s): M62.82 - RHABDOMYOLYSIS Comment: CPK mildly increased today, renal function WNL Exercise induced - patient reports new weight regimen in addition to running and several hours of dance practice Continue aggressive IVF hydration Monitor renal function Continue to trend total CK and AST/ALT Continue pain management and supportive care (2) Elevated LFTs Code(s): R94.5 - ABNORMAL RESULTS OF LIVER FUNCTION STUDIES Comment: Continue to trend AST/ALT Suspect rise in AST/ALT secondary to rhabdomyolysis Appreciate GI consult Hepatitis serology negative JOANIE, anti-dsDNA, ceruloplasmin pending Continue supportive care and pain control. (3) DVT prophylaxis Comment: YASSINE paz Status and Disposition: Inpatient admission. Anticipate LOS >2 days.
[2016-09-17] MEDS: NS 0.9% 1000 ML* 2,000 ML IV ONE ×2 (11:08→13:24)
[2016-09-18 06:53] LABS: Albumin 3.6 g/dL (3.2-5.2); BUN/Creatinine Ratio 11.8 (8-20); Calcium 9.1 mg/dL (8.6-10.3); EGFR African American 166.5 (>60); EGFR Non-African American 129.5 (>60); Globulin 2.4 g/dL (2-4); Potassium 3.9 mmol/L (3.5-5.0); Total Bilirubin 0.5 mg/dL (0.2-1.0)
[2016-09-18] MEDS: Omeprazole CAP* 20 MG PO SCH (07:34)
--- NOTE | 2016-09-18 09:21 | PN ---
Subjective Date of Service: 09/18/16 Interval History: Patient seen and examined at bedside. He was previously ambulating in halls. He denies fever/chills, CP, SOB, abd pain, flank pain, n/v. He is anxious for discharge as classes start tomorrow. We discussed the labs and reviewed his CK levels; pt is in agreement with plan and understands the need for fluid resuscitation. He reports his urine looks "almost normal." His thighs are still somewhat tender but improved. Family History: Unchanged from Admission Social History: Unchanged from Admission Past Medical History: Unchanged from Admission Objective Active Medications: Lactated Ringer's (Lactated Ringers 1000 Ml Bag*) 1,000 mls @ 200 mls/hr IV PER RATE [facility] Last Admin: 09/18/16 04:39 Dose: 200 mls/hr Melatonin (Melatonin (Nf)) 3 mg PO BEDTIME PRN; Protocol PRN Reason: Sleep Omeprazole (Prilosec Cap*) 20 mg PO DAILY@0600 [facility] Last Admin: 09/18/16 07:34 Dose: 20 mg Ondansetron HCl (Zofran Inj*) 4 mg IV Q6H PRN PRN Reason: NAUSEA Tramadol HCl (Ultram*) 50 mg PO Q6H PRN PRN Reason: PAIN Vital Signs 09/17/16 09/17/16 09/17/16 15:05 19:17 23:35 Temperature 97.8 F 97.8 F Pulse Rate 66 62 Respiratory 16 18 16 Rate Blood Pressure 132/63 134/65 (mmHg) O2 Sat by Pulse 100 100 Oximetry 09/18/16 09/18/16 07:26 07:53 Temperature 97.8 F Pulse Rate 57 Respiratory 16 18 Rate Blood Pressure 124/59 (mmHg) O2 Sat by Pulse 99 Oximetry Oxygen Devices in Use Now: None Appearance: Young male, sitting up, in NAD Eyes: PERRLA Ears/Nose/Mouth/Throat: Clear Oropharnyx, Mucous Membranes Moist Neck: NL Appearance and Movements; NL JVP Respiratory: Symmetrical Chest Expansion and Respiratory Effort, Clear to Auscultation Cardiovascular: NL Sounds; No Murmurs; No JVD, RRR Abdominal: NL Sounds; No Tenderness; No Distention Extremities: No Edema Skin: No Rash or Ulcers Neurological: Alert and Oriented x 3 Lines/Tubes/Other Access: Clean, Dry and Intact Peripheral IV Nutrition: Taking PO's Result Diagrams: 09/15/16 18:35 09/18/16 05:35 Additional Lab and Data: Lab Results 09/15/16 09/15/16 09/15/16 Range/Units 18:35 18:35 18:35 WBC 10.1 (3.5-10.8) 10^3/ul RBC 5.26 (4.0-5.4) 10^6/ul Hgb 15.9 (14.0-18.0) g/dl Hct 47 (42-52) % MCV 90 (80-94) fL MCH 30 (27-31) pg MCHC 34 (31-36) g/dl RDW 13 (10.5-15) % Plt Count 229 (150-450) 10^3/ul MPV 9 (7.4-10.4) um3 Neut % (Auto) 73.9 (38-83) % Lymph % (Auto) 20.4 L (25-47) % [place] % (Auto) 5.1 (1-9) % Eos % (Auto) 0.4 (0-6) % Baso % (Auto) 0.2 (0-2) % Absolute Neuts (auto) 7.4 (1.5-7.7) 10^3/ul Absolute Lymphs (auto) 2.0 (1.0-4.8) 10^3/ul Absolute Monos (auto) 0.5 (0-0.8) 10^3/ul Absolute Eos (auto) 0 (0-0.6) 10^3/ul Absolute Basos (auto) 0 (0-0.2) 10^3/ul Absolute Nucleated RBC 0 10^3/ul Nucleated RBC % 0 INR (Anticoag Therapy) 1.00 (0.89-1.11) APTT 29.9 (26.0-36.3) seconds Sodium 138 (133-145) mmol/L Potassium 3.9 (3.5-5.0) mmol/L Chloride 103 (101-111) mmol/L Carbon Dioxide 33 H (22-32) mmol/L Anion Gap 2 (2-11) mmol/L BUN 10 (6-24) mg/dL Creatinine 0.82 (0.67-1.17) mg/dL Est GFR ( Amer) 152.5 (>60) Est GFR (Non-Af Amer) 118.6 (>60) BUN/Creatinine Ratio 12.2 (8-20) Glucose 94 (70-100) mg/dL Calcium 9.7 (8.6-10.3) mg/dL Total Bilirubin 0.90 (0.2-1.0) mg/dL AST 2435 H (13-39) U/L ALT 549 H (7-52) U/L Alkaline Phosphatase 63 (34-104) U/L Total Creatine Kinase 357585 H (10-223) U/L CK-MB (CK-2) 68.6 H (0.6-6.3) ng/mL C-Reactive Protein 3.96 (< 5.00) mg/L Total Protein 7.2 (6.4-8.9) g/dL Albumin 4.7 (3.2-5.2) g/dL Globulin 2.5 (2-4) g/dL Albumin/Globulin Ratio 1.9 (1-3) Amylase 64 (29-103) U/L Lipase 37 (11.0-82.0) U/L Urine Color Urine Appearance Urine pH (5-9) Ur Specific [place] (1.010-1.030) Urine Protein (Negative) Urine Ketones (Negative) Urine Blood (Negative) Urine Nitrate (Negative) Urine Bilirubin (Negative) Urine Urobilinogen (Negative) Ur Leukocyte Esterase (Negative) Urine WBC (Auto) (Absent) Urine RBC (Auto) (Absent) Urine Bacteria (Absent) Urine Glucose (Negative) Acetaminophen Pending 09/15/16 Range/Units 19:20 WBC (3.5-10.8) 10^3/ul RBC (4.0-5.4) 10^6/ul Hgb (14.0-18.0) g/dl Hct (42-52) % MCV (80-94) fL MCH (27-31) pg MCHC (31-36) g/dl RDW (10.5-15) % Plt Count (150-450) 10^3/ul MPV (7.4-10.4) um3 Neut % (Auto) (38-83) % Lymph % (Auto) (25-47) % [place] % (Auto) (1-9) % Eos % (Auto) (0-6) % Baso % (Auto) (0-2) % Absolute Neuts (auto) (1.5-7.7) 10^3/ul Absolute Lymphs (auto) (1.0-4.8) 10^3/ul Absolute Monos (auto) (0-0.8) 10^3/ul Absolute Eos (auto) (0-0.6) 10^3/ul Absolute Basos (auto) (0-0.2) 10^3/ul Absolute Nucleated RBC 10^3/ul Nucleated RBC % INR (Anticoag Therapy) (0.89-1.11) APTT (26.0-36.3) seconds Sodium (133-145) mmol/L Potassium (3.5-5.0) mmol/L Chloride (101-111) mmol/L Carbon Dioxide (22-32) mmol/L Anion Gap (2-11) mmol/L BUN (6-24) mg/dL Creatinine (0.67-1.17) mg/dL Est GFR ( Amer) (>60) Est GFR (Non-Af Amer) (>60) BUN/Creatinine Ratio (8-20) Glucose (70-100) mg/dL Calcium (8.6-10.3) mg/dL Total Bilirubin (0.2-1.0) mg/dL AST (13-39) U/L ALT (7-52) U/L Alkaline Phosphatase (34-104) U/L Total Creatine Kinase (10-223) U/L CK-MB (CK-2) (0.6-6.3) ng/mL C-Reactive Protein (< 5.00) mg/L Total Protein (6.4-8.9) g/dL Albumin (3.2-5.2) g/dL Globulin (2-4) g/dL Albumin/Globulin Ratio (1-3) Amylase (29-103) U/L Lipase (11.0-82.0) U/L Urine Color Straw Urine Appearance Clear Urine pH 7.0 (5-9) Ur Specific [place] 1.002 L (1.010-1.030) Urine Protein Negative (Negative) Urine Ketones Negative (Negative) Urine Blood 3+ H (Negative) Urine Nitrate Negative (Negative) Urine Bilirubin Negative (Negative) Urine Urobilinogen Negative (Negative) Ur Leukocyte Esterase Negative (Negative) Urine WBC (Auto) Absent (Absent) Urine RBC (Auto) 1+(3-5/hpf) H (Absent) Urine Bacteria 1+ H (Absent) Urine Glucose Negative (Negative) Acetaminophen Microbiology and Other Data: Microbiology 09/15/16 22:00 Nasal Screen MRSA (PCR)(SHAWN) - Final Nasal Mrsa Negative Assess/Plan/Problems-Billing Assessment: Mr. Kinney is a 21 yo male patient with no significant past medical history who presented to the ED on 09/15/16 with BLE muscle pain and dark urine that is secondary to exercise induced rhabdomyolysis. - Patient Problems (1) Rhabdomyolysis Code(s): M62.82 - RHABDOMYOLYSIS Comment: [place]K [place] from 042588 to 15437, renal function WNL Exercise induced - patient reports new weight regimen in addition to long distance running and several hours of dance practice Continue aggressive IVF hydration Monitor renal function Continue to trend total CK and AST/ALT Continue pain management and supportive care (2) Elevated LFTs Code(s): R94.5 - ABNORMAL RESULTS OF LIVER FUNCTION STUDIES Comment: Transaminitis improving Suspect rise in AST/ALT secondary to rhabdomyolysis Appreciate GI consult Hepatitis serology negative JOANIE, anti-dsDNA, ceruloplasmin pending Continue supportive care and pain control. (3) DVT prophylaxis Comment: YASSINE paz Encourage ambulation. Status and Disposition: Inpatient admission. Anticipate LOS >2 days.
[2016-09-19] MEDS: Omeprazole CAP* 20 MG PO SCH (06:40)
[2016-09-19 06:50] LABS: Albumin 3.8 g/dL (3.2-5.2); BUN/Creatinine Ratio 10.7 (8-20); Calcium 9.3 mg/dL (8.6-10.3); EGFR African American 169.1 (>60); EGFR Non-African American 131.5 (>60); Globulin 2.4 g/dL (2-4); Total Bilirubin 0.6 mg/dL (0.2-1.0); Total Protein 6.2 g/dL (6.4-8.9)
--- NOTE | 2016-09-19 16:39 | PN ---
Subjective Date of Service: 09/19/16 Interval History: HOSPITALIST PROGRESS NOTE Patient seen and examined at bedside. He feels well today, denies muscle aches. States his urine is very clear. Family History: Unchanged from Admission Social History: Unchanged from Admission Past Medical History: Unchanged from Admission Objective Active Medications: Lactated Ringer's (Lactated Ringers 1000 Ml Bag*) 1,000 mls @ 200 mls/hr IV PER RATE [facility] Last Admin: 09/19/16 12:21 Dose: 200 mls/hr Melatonin (Melatonin (Nf)) 3 mg PO BEDTIME PRN; Protocol PRN Reason: Sleep Omeprazole (Prilosec Cap*) 20 mg PO DAILY@0600 [facility] Last Admin: 09/19/16 06:40 Dose: 20 mg Ondansetron HCl (Zofran Inj*) 4 mg IV Q6H PRN PRN Reason: NAUSEA Tramadol HCl (Ultram*) 50 mg PO Q6H PRN PRN Reason: PAIN Vital Signs 09/19/16 09/19/16 09/19/16 07:23 07:49 11:51 Temperature 98.3 F 99.4 F Pulse Rate 56 66 Respiratory 17 16 16 Rate Blood Pressure 127/51 (mmHg) O2 Sat by Pulse 100 Oximetry Oxygen Devices in Use Now: None Appearance: Young male sitting up in bed in [facility]. Eyes: No Scleral Icterus Ears/Nose/Mouth/Throat: Mucous Membranes Moist Neck: Trachea Midline Respiratory: Symmetrical Chest Expansion and Respiratory Effort, Clear to Auscultation Cardiovascular: RRR - Normal S1 and S2 Abdominal: NL Sounds; No Tenderness; No Distention Extremities: No Edema Neurological: Alert and Oriented x 3, NL Muscle Strength and Tone Lines/Tubes/Other Access: Clean, Dry and Intact Peripheral IV Nutrition: Taking PO's Result Diagrams: 09/15/16 18:35 09/19/16 06:29 Assess/Plan/Problems-Billing Assessment: Mr. Kinney is a 21 yo male patient with no significant past medical history who presented to the ED on 09/15/16 with BLE muscle pain and dark urine that is secondary to exercise induced rhabdomyolysis. - Patient Problems (1) Rhabdomyolysis Comment: - CPK down to 35k, renal function WNL - Exercise induced - patient reports new weight regimen in addition to long distance running and several hours of dance practice. - Continue aggressive IVF hydration. - Will contact [place], but I think he could be discharged home when his CPK is below 20k as long as he has close outpatient follow up. (2) Elevated LFTs Comment: - GI input appreciated - elevation secondary to rhabdomyolisis. - Trending down. (3) DVT prophylaxis Comment: - YASSINE / encourage ambulation. Status and Disposition: Inpatient admission. Patient and mother updated at bedside and in agreement with plan.
[2016-09-20] MEDS: Omeprazole CAP* 20 MG PO SCH (06:17)
[2016-09-20 06:57] LABS: Albumin 3.8 g/dL (3.2-5.2); Calcium 9.3 mg/dL (8.6-10.3); EGFR Non-African American 127.5 (>60); Globulin 2.4 g/dL (2-4); Potassium 4.1 mmol/L (3.5-5.0); Total Bilirubin 0.5 mg/dL (0.2-1.0); Total Protein 6.2 g/dL (6.4-8.9)
[2016-09-20 08:08] VITALS: BP 126/71
--- NOTE | 2016-09-21 10:55 | DS ---
DISCHARGE SUMMARY: DATE OF ADMISSION: 09/15/16 DATE OF DISCHARGE: 09/20/16 PRIMARY CARE PROVIDER: Dr. Leger. DISCHARGE DIAGNOSES: 1. Exercise-induced rhabdomyolysis. 2. Elevated liver function tests. MEDICATION LIST: Ibuprofen 600 mg p.o. q.8 hours p.r.n. pain. HOSPITAL COURSE: Mr. Kinney is a 21-year-old healthy male, who had started an exercise routine including weightlifting, dancing that presented to the emergency room with complaints of bilateral lower extremity soreness and brownish discoloration of the urine. For more details about his presentation, I refer you to his history and physical. Workup in the emergency room included a CPK of 165,000, AST of 2400, and ALT of 549. He was admitted under the impression of exercise-induced rhabdomyolysis and managed with aggressive IV hydration. He had a gallbladder ultrasound that showed mild prominence of the common bile duct. This ultrasound also showed that the right kidney had increased echogenicity consistent with medical renal disease. Despite the significant elevation of his CPK, his renal function remained normal throughout the hospital stay. There was concern with elevation of the LFTs that the magnitude suggested a liver process on top of his rhabdomyolysis. The patient was seen in consultation by Gastroenterology (Dr. Dutta) and his impression was the patient presented with evidence of rhabdomyolysis associated with elevated ALT and AST and he felt it was certain that these enzymatic elevations are all related to muscle injury and not hepatic disease. The patient did have a workup including hepatitis serology A, B, and C that were all negative, JOANIE that was negative, anti-double stranded DNA that was also negative. Acetaminophen level was less than 15 and at the time of the dictation, ceruloplasmin is pending and should be followed as outpatient. The patient had improvement in his symptoms and his CPK and LFTs continued to trend down. On the day of discharge, CPK 17,000, AST is 415, ALT 341, and the patient's symptoms are almost resolved and he feels well to be discharged home. The impression is that this was likely exercise related and he denies any steroid use. Although at 21, he may be a little old for a diagnosis like this, but I believe that if his CPK does not return to normal, we should consider metabolic myopathies too. The plan is for the patient to be discharged home today. I believe he can return to his classes, but should avoid physical exertion until his enzymes have normalized. I called [facility] and talked to Lizz, one of the nurses, and the plan for the patient to have CPK level on September 24 and he will follow up with Dr. Leger on September 25 at 10:30 a.m. PHYSICAL EXAMINATION: Vital Signs: Temperature 98.9, heart rate is 60, respiratory rate is 16, oxygen saturation 99% on room air, and blood pressure is 126/71. General: The patient is a pleasant young male, sitting up in bed, in no acute distress. CVS: Normal S1 and S2. Regular rate and rhythm. Chest : Breath sounds present bilaterally with no added sounds. Abdomen is soft. Bowel sounds present. Extremities: No edema. Neuro: He is alert, awake, and oriented x3. Able to move all 4 extremities. DIET: Regular diet. ACTIVITY: As tolerated. DISPOSITION: To home. STATUS WHILE IN THE HOSPITAL: Inpatient. Please keep in mind that this is a summarized version of this patient's hospital stay. If you need more information, please feel free to call me at [phone] or please obtain the full medical records. TIME SPENT: Approximately 45 minutes was spent to complete this discharge. CC: Dr. Leger, [facility] * [id number]/[facility] #: [id number] MTDD
[2016-09-22 13:32] LABS: Ceruloplasmin 16 mg/dL (18-36)
== END 2016-09-20 13:20 | disposition home or self-care (01) | DRG 351 ==
LOC: ED 18:11 → MED 20:56 → OBSVTOIN 09-16 09:16 → MCHPEDS 09-18 19:49
PROVIDERS: ADMIT Hospitalist; ATTEND Internal Medicine
DX: M62.82 Rhabdomyolysis (principal); R94.5 Abnormal results of liver function studies
CPT/HCPCS: 36415; 76705; 80048; 80053; 80074; 80076; 80329; 81003; 81015; 82150; 82390; 82550; 82553; 82977; 83690; 85025; 85610; 85730; 86038; 86140; 86225; 87086; 87641; 99284; A9270-GY; G0480